=== PATIENT | male | born 1975 | race Two or more races ===

== ENCOUNTER 2021-10-02 05:34 | Emergency (ER) | payer MEDICARE, MEDICAID, SELFPAY ==
[2021-10-02 06:01] VITALS: BP 142/81; PULSE 60; RESP 16; TEMP 36.9; O2SAT 98; BMI 33.5
--- NOTE | 2021-10-02 09:16 | ED_ITS ---
HPI - General Adult General Chief complaint: General Medical Stated complaint: 5 days of pain in rectum Time Seen by Provider: 10/02/21 07:25 Source: patient Mode of arrival: ambulatory Limitations: no limitations History of Present Illness HPI narrative: Patient presents emergency department for evaluation of rectal pain. He reports onset to be 5 days ago. After having a bowel movement until external hemorrhoi ds that he was able to push back into the rectal canal. For the past 5 days he has continued to have pain needing to manually manipulate the hemorrhoids. He has tried [id number] hydrocortisone cream with minimal relief. Denies fevers, chills, nausea, vomiting, abdominal pain, inability to move his bowels, diarrhea, constipation, bloody or black stools. Related Data Previous Rx's Medication Instructions Recorded hydrocortisone acetate 25 mg 25 mg GA DAILY #12 ea 10/02/21 rectal suppository polyethylene glycol 3350 17 17 g PO DAILY #119 grams 10/02/21 gram/dose oral powder (Miralax) Allergies Allergy/AdvReac Type Severity Reaction Status Date / Time From SEROQUEL Allergy Unknown DIFFICULTY Uncoded 10/02/21 06:03 BREATHING Review of Systems Review of Systems: Constitutional: No fever, chills, weakness or fatigue. Skin: No rash or itching. Cardiovascular: No chest pain Respiratory: No shortness of breath Gastrointestinal: No, nausea, vomiting or diarrhea. No abdominal pain or blood in stool. Positive rectal pain Genitourinary: No burning micturition. No urinary frequency or incontinence. Musculoskeletal: No muscle pain, back pain, joint pain or stiffness. Psychiatric: No depression or anxiety. Yes all other systems are reviewed and are negative [facility] Past Medical History Attestation statement: The following information was validated with the patient. Source: old records reviewed Social History Social History Advance Directives: No Advance Directives Information Provided: No Physical Exam ED Vital Signs: Vital Signs - 24 hr 10/02/21 06:01 Temperature 98.4 F Pulse Rate 60 Respiratory Rate 16 Blood Pressure 142/81 H Pulse Oximetry 98 Oxygen Delivery Method Room Air BMI result Body Mass Index 33.5 Appearance: Alert.?Oriented to person, place and time. No acute distress.?Normal affect. Eyes: Pupils equal, round and reactive to light.? ENT: Pharynx normal.?? Neck: Normal inspection.? Neck supple.?? CVS: Heart sounds normal. Normal heart rate and rhythm.? Pulses normal.?? Respiratory: No respiratory distress.? Lung sounds clear to auscultation bilaterally?? Abdomen: Soft and non-tender. Normoactive bowel sounds. No pulsatile mass.?? Rectal: [employer] ED RN Enrique. External hemorrhoids, non thrombosed, no active bleeding. Skin: Skin warm and dry.? Normal skin color.? Extremities: No lower extremity edema.? Neuro: Moves all extremities spontaneously. Sensation intact bilaterally. No motor deficits Ambulates with normal steady gait. Course Course Course Narrative: Patient is a 46-year-old male with no significant past medical history presented to emergency department for evaluation of rectal pain. Physical exam consistent with hemorrhoids. Discharge Plan Discharge Clinical Impression: Hemorrhoids that prolapse with straining and require manual replacement back inside anal canal Patient Disposition: Home, Self-Care Instructions: Hemorrhoids (ED) Additional Instructions: Be sure to drink plenty of water throughout the day to stay well hydrated. Increase fiber intake to allow ease of bowel movements Use MiraLax daily to soften stools, do not use if you develop diarrhea. Use Anusol suppository daily as needed for pain Follow-up with your primary care provider. Return to the emergency department for any new or worsening symptoms or concerns. Prescriptions: New polyethylene glycol 3350 [Miralax] 17 gram/dose powder 17 g PO DAILY Qty: 119 0RF hydrocortisone acetate 25 mg suppository 25 mg GA DAILY Qty: 12 0RF Interventions: ED Discharge Assessment Last Done: 10/02/21 09:36 Discharge Date/Time: 10/02/21 09:36
== END 2021-10-02 09:36 | disposition home or self-care (01) ==
PROVIDERS: Emergency Provider Emergency Medicine
DX: K64.8 Other hemorrhoids (principal); K62.89 Other specified diseases of anus and rectum
CPT/HCPCS: 99282; 99283